=== PATIENT | male | born 1970 | race Caucasian/White ===

== ENCOUNTER 2018-04-05 12:59 | Emergency (ER) | payer BC, OTHER ==
[~2018-04-05] VITALS: Ht 170.2 cm; Wt 108.6 kg
[2018-04-05 13:11] VITALS: Ht 170.2 cm; Wt 108.6 kg
[2018-04-05] MEDS ORDERED: IBUPROFEN 600 MG TAB PO STA (13:28)
[2018-04-05] MEDS ORDERED: SODIUM CHLORIDE 0.9% 1000ML 1,000 ML IV STA (13:28)
[2018-04-05 13:53] VITALS: O2SAT 96
[2018-04-05 14:04] LABS: BASO % 0.2 %; BASO ABS # 0.02 K/uL (0-0.2); EOS % 0.5 %; EOS ABS # 0.06 K/uL (0-0.5); HEMATOCRIT 43.3 % (42-52); HEMOGLOBIN 14.6 g/dL (14.0-18.0); IG# 0.05 K/uL (0.00-0.02); LYMPH % 11.4 %; LYMPH ABS # 1.48 K/uL (1.2-3.4); MEAN CELL VOLUME 87.5 fL (80-100); MEAN CORPUSCULAR HEMOGLOBIN 29.5 pg (25-34); MEAN CORPUSCULAR HGB CONC 33.7 g/dl (32-36); MEAN PLATELET VOLUME 10.2 fL (7.4-10.4); MONO % 4.3 %; MONO ABS # 0.56 K/uL (0.11-0.59); NEUT % 83.2 %; NEUT ABS # 10.86 K/uL (1.4-6.5); PLATELET COUNT 194 K/uL (130-400); RED CELL DISTRIBUTION WIDTH CV 13.5 % (11.5-14.5); RED CELL DISTRIBUTION WIDTH SD 43.4 fL (36.4-46.3); WHITE BLOOD COUNT 13.03 K/uL (4.8-10.8)
--- NOTE | 2018-04-05 14:13 | DIAGNOSTIC IMAGING REPORT ---
CHEST ONE VIEW PORTABLE CLINICAL HISTORY: 47 years-old Male presenting with EVALUATE ALTERED MENTAL STATUS/WEAKNESS. TECHNIQUE: Portable upright AP view of the chest was obtained. COMPARISON: None. FINDINGS: Atherosclerosis of the aortic arch. Cardiac silhouette top normal in size. Mildly low lung volumes. No focal opacity. No large effusion or pneumothorax. Osseous structures normal. Upper abdomen normal. IMPRESSION: 1. No acute cardiopulmonary disease. Electronically signed by: Judson Vizcarra M.D. 04/05/2018 2:11 PM Dictated Date/Time: 04/05/2018 2:11 PM
[2018-04-05 14:33] LABS: CALCIUM 9.1 mg/dl (8.5-10.1); CREATININE 1.09 mg/dl (0.60-1.40); POTASSIUM 4.3 mmol/L (3.5-5.1); TOTAL PROTEIN 7.7 gm/dl (6.4-8.2)
[2018-04-05 16:36] VITALS: BP 127/81; PULSE 63; TEMP 36.9; O2SAT 98
--- NOTE | 2018-04-05 16:36 | EMERGENCY ROOM VISIT NOTE ---
History Report prepared by Sandra: Torie Vidal Under the Supervision of: Dr. Beny Carolina M.D. 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 He states he does not remember the episode but was told by the EMT that he was turned to the side, was given a back rub, and was foaming at the mouth. The patient reports when he woke up, he felt fine. He denies chest pain, SOB, neck pain, headache, biting his tongue, or urinating his pants. He states he ate breakfast this morning and has only passed out once 10 years ago. 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 A total of 10 systems reviewed and were otherwise negative. Past Medical & Surgical Medical Problems: (1) No significant past medical history Family History No pertinent family history Social History Smoking Status: Never Smoker Marital Status: Housing Status: lives with significant other Current/Historical Medications No Active Prescriptions or Reported Meds Allergies Coded Allergies: No Known Allergies (Unverified Allergy, Mild, NONE, 11/21/08) Physical Exam Vital Signs Date Time Temp Pulse Resp B/P (MAP) Pulse Ox O2 Delivery O2 Flow Rate FiO2 04/05/18 16:36 36.9 63 18 127/81 98 04/05/18 16:35 63 18 127/81 98 Room Air 04/05/18 15:00 59 18 121/80 98 Room Air 04/05/18 14:50 66 18 129/80 98 Room Air 04/05/18 13:59 78 18 122/84 97 Room Air 04/05/18 13:54 69 04/05/18 13:53 96 Room Air 04/05/18 13:11 36.9 70 18 126/84 95 Room Air Physical Exam GENERAL: Patient is in no acute distress. HEENT: There is an abrasion to the lateral aspect of the R eye. No globe involvement. No laceration. Mucous membranes slightly dry. NECK: No stridor, no adenopathy, no meningismus, trachea is midline. LUNGS: Clear to auscultation bilaterally, no wheeze, no rhonchi, breath sounds equal. HEART: Without murmurs gallops or rubs, regular rate and rhythm. ABDOMEN: Soft, nontender, bowel sounds positive, no hernias, no peritonitis. EXTREMITIES: No cyanosis or edema, full range of motion of all the joints without pain or difficulty, no signs for acute trauma. NEUROLOGIC: Oriented x 3, no acute motor or sensory deficits, no focal weakness. SKIN: No rash, no jaundice, no diaphoresis. Medical Decision & Procedures ER Provider Diagnostic Interpretation: Radiology results as stated below per my review and radiologist interpretation: CHEST ONE VIEW PORTABLE CLINICAL HISTORY: 47 years-old Male presenting with EVALUATE ALTERED MENTAL STATUS/WEAKNESS. TECHNIQUE: Portable upright AP view of the chest was obtained. COMPARISON: None. FINDINGS: Atherosclerosis of the aortic arch. Cardiac silhouette top normal in size. Mildly low lung volumes. No focal opacity. No large effusion or pneumothorax. Osseous structures normal. Upper abdomen normal. IMPRESSION: 1. No acute cardiopulmonary disease. Electronically signed by: Judson Vizcarra M.D. 04/05/2018 2:11 PM Laboratory Results 04/05/18 13:50 Red Blood Count 4.95, Mean Corpuscular Volume 87.5, Mean Corpuscular Hemoglobin 29.5, Mean Corpuscular Hemoglobin Concent 33.7, Mean Platelet Volume 10.2, Neutrophils (%) (Auto) 83.2, Lymphocytes (%) (Auto) 11.4, Monocytes (%) (Auto) 4.3, Eosinophils (%) (Auto) 0.5, Basophils (%) (Auto) 0.2, Neutrophils # (Auto) 10.86, Lymphocytes # (Auto) 1.48, Monocytes # (Auto) 0.56, Eosinophils # (Auto) 0.06, Basophils # (Auto) 0.02 04/05/18 13:50 Test 04/05/18 13:50 04/05/18 16:01 White Blood Count 13.03 K/uL (4.8-10.8) Red Blood Count 4.95 M/uL (4.7-6.1) Hemoglobin 14.6 g/dL (14.0-18.0) Hematocrit 43.3 % (42-52) Mean Corpuscular Volume 87.5 fL (80-100) Mean Corpuscular Hemoglobin 29.5 pg (25-34) Mean Corpuscular Hemoglobin Concent 33.7 g/dl (32-36) Platelet Count 194 K/uL (130-400) Mean Platelet Volume 10.2 fL (7.4-10.4) Neutrophils (%) (Auto) 83.2 % Lymphocytes (%) (Auto) 11.4 % Monocytes (%) (Auto) 4.3 % Eosinophils (%) (Auto) 0.5 % Basophils (%) (Auto) 0.2 % Neutrophils # (Auto) 10.86 K/uL (1.4-6.5) Lymphocytes # (Auto) 1.48 K/uL (1.2-3.4) Monocytes # (Auto) 0.56 K/uL (0.11-0.59) Eosinophils # (Auto) 0.06 K/uL (0-0.5) Basophils # (Auto) 0.02 K/uL (0-0.2) RDW Standard Deviation 43.4 fL (36.4-46.3) RDW Coefficient of Variation 13.5 % (11.5-14.5) Immature Granulocyte % (Auto) 0.4 % Immature Granulocyte # (Auto) 0.05 K/uL (0.00-0.02) Anion Gap 9.0 mmol/L (3-11) Est Creatinine Clear Calc Drug Dose 99.5 ml/min Estimated GFR () 93.8 Estimated GFR (Non- 81.0 BUN/Creatinine Ratio 13.8 (10-20) Calcium Level 9.1 mg/dl (8.5-10.1) Magnesium Level 2.0 mg/dl (1.8-2.4) Total Bilirubin 0.4 mg/dl (0.2-1) Aspartate Amino Transf (AST/SGOT) 27 U/L (15-37) Alanine Aminotransferase (ALT/SGPT) 49 U/L (12-78) Alkaline Phosphatase 73 U/L (45-117) Total Creatine Kinase 211 U/L (39-308) Total Protein 7.7 gm/dl (6.4-8.2) Albumin 4.0 gm/dl (3.4-5.0) Globulin 3.7 gm/dl (2.5-4.0) Albumin/Globulin Ratio 1.1 (0.9-2) Thyroid Stimulating Hormone (TSH) 0.550 uIu/ml (0.300-4.500) Bedside Troponin I 0.030 ng/ml (0-0.045) Laboratory results reviewed by me. Medications Administered Medications (Trade) Dose Ordered Sig/Macey Route Start Time Stop Time Status Last Admin Dose Admin Sodium Chloride 1,000 ml @ 999 mls/hr Q1H1M STAT IV 04/05/18 13:28 04/05/18 14:28 DC 04/05/18 13:28 999 MLS/HR Ibuprofen (Motrin Tab) 600 mg NOW STAT PO 04/05/18 13:28 04/05/18 13:30 DC 04/05/18 13:28 600 MG ECG Per My Interpretation Indication: syncope Rate (beats per minute): 54 Rhythm: sinus bradycardia Findings: other (no ST elevation, no PVCs) ED Course 1319: The patient was evaluated in room B10. A complete history and physical exam was performed. 1328: Ordered Ibuprofen 600 mg PO, Sodium Chloride 1000 ml @ 999 mls/hr IV 1514: I checked on the patient at this time. I informed him of his results and the need for a repeat troponin. 1622: Reevaluated the patient. Discussed results and discharge instructions: He verbalized understanding and agreement. The patient is ready for discharge. Medical Decision Differential diagnosis: Etiologies such as dehydration, overexertion, dysrhythmia, anemia, electrolyte imbalance, cardiomegaly, NE, infection, as well as others were entertained. There is a very mild leukocytosis, this is likely consistent with the stress of today's event. No anemia. No significant electrolyte abnormality, kidney failure or hepatitis. The patient appears to be in a euthyroid state. EKG shows a sinus bradycardia, no acute ischemia. Cardiac enzyme testing 2 is not consistent with acute cardiac injury. Chest x-ray does not show mediastinal widening, pneumonia or pneumothorax. Patient received IV saline, he was given oral Motrin for his hamstring soreness. He was given ice packs to help with swelling and inflammation in the hamstrings. I think the patient overexerted himself today and then was having some pain, the heat, the overexertion, the pain led to a syncopal event. I do not think he had a true seizure as there was no post ictal phase. This was likely some seizure-like activity from the syncopal episode. The patient has been reassured. He is being discharged to follow with his doctor's office. He will stay well hydrated and rest and be less physical during practice. If worsening, he can return. Medication Reconcilliation Current Medication List: was personally reviewed by me Blood Pressure Screening Patient's blood pressure: Normal blood pressure Blood pressure disposition: Did not require urgent referral Impression Primary Impression: Syncope Scribe Attestation The scribe's documentation has been prepared under my direction and personally reviewed by me in its entirety. I confirm that the note above accurately reflects all work, treatment, procedures, and medical decision making performed by me. Departure Information Dispostion Home / Self-Care Prescriptions No Active Prescriptions or Reported Meds Forms HOME CARE DOCUMENTATION FORM, IMPORTANT VISIT INFORMATION Patient Instructions My [facility] Additional Instructions rest stay well hydrated you will need to be less active with practice heart testing today was ok return if worsening
== END 2018-04-05 16:37 | disposition home or self-care (01) ==
LOC: C.EDB 13:01
DX: R55 Syncope and collapse (principal); S00.81XA Abrasion of other part of head, initial encounter; X58.XXXA Exposure to other specified factors, initial encounter; M79.659 Pain in unspecified thigh